=== PATIENT | female | born 1980 | race Caucasian/White ===

== ENCOUNTER 2017-12-27 20:52 | Emergency (ER) | payer MEDICAID, OTHER ==
[2017-12-27 22:07] LABS: URINE BLOOD (Dip) POC 3+ (NEGATIVE); URINE GLUCOSE (Dip) POC Negative (NEGATIVE); URINE KETONES (Dip) POC Negative (NEGATIVE); URINE LEUKOCYTE EST (Dip) POC 1+ (NEGATIVE); URINE NITRITE (Dip) POC Negative (NEGATIVE); URINE TOTAL PROTEIN POC 1+ (NEGATIVE)
[2017-12-27] MEDS: PHENAZOPYRIDINE 100 MG TAB PO (22:07)
== END 2017-12-27 23:04 | disposition home or self-care (01) ==
LOC: FTE 20:52
DX: R30.0 Dysuria (principal)
CPT/HCPCS: 81003; 81025; 87086; 99283